=== PATIENT | male | born 1935 | race Caucasian/White ===

== ENCOUNTER 2017-05-10 19:12 | Emergency (ER) | payer MEDICARE, OTHER ==
[2017-05-10] MEDS ORDERED: methylPREDNISolone Sodium Succinate 125 MG/2 ML SDV IM ONE (19:43)
--- NOTE | 2017-05-10 19:53 | EDM.PDOC ---
ED HPI GENERAL MEDICAL PROBLEM - General Chief Complaint: Respiratory Problem Stated Complaint: ILL Time Seen by Provider: 05/10/17 19:25 Source of Information: Reports: Patient History Limitations: Reports: No Limitations - History of Present Illness INITIAL COMMENTS - FREE TEXT/NARRATIVE: PT STATES HE WAS USING [employer] IN BATHROOM AND BECAME SOB AND DIAPHORETIC. CONTACTED EMS AND WAS BROUGHT TO ER. FEELS BETTER UPON PRESENTATION. DENIES CP, N/V, MARQUEZ, OR VISION CHANGES. Onset: Today Duration: Hour(s): Quality: Reports: Burning Severity: Mild Improves with: Reports: None Worsens with: Reports: Breathing Associated Symptoms: Reports: No Other Symptoms - Related Data Allergies Allergy/AdvReac Type Severity Reaction Status Date / Time No Known Drug Allergies Allergy Unknown Cannot Verified 05/10/17 19:19 Remember Home Meds: Home Meds Aspirin [Adult Low Dose Aspirin EC] 81 mg PO DAILY 10/28/13 [History] Formoterol [Perforomist] 20 mcg INH BID 10/28/13 [History] InFLIXimab [Remicade] 500 mg IV ASDIRECTED 10/28/13 [History] Terazosin [Hytrin] 5 mg PO BEDTIME 10/28/13 [History] Tiotropium [Spiriva] 18 mcg INH DAILY 10/28/13 [History] Valsartan/Hydrochlorothiazide [Valsartan-Hctz 160-12.5 mg Tab] 0.5 tab PO DAILY 10/28/13 [History] azaTHIOprine [Azathioprine] 50 mg PO DAILY 09/01/14 [History] Psyllium [Metamucil] 1 cap PO BID 02/16/15 [History] Acetaminophen 500 mg PO Q4H PRN 08/24/15 [History] Folic Acid 1 mg PO DAILY 10/25/16 [History] hydrALAZINE [Apresoline] 25 mg PO BID 10/25/16 [History] Flecainide Acetate [Flecainide Acetate] 50 mg PO BID 05/10/17 [History] Past Medical History HEENT History: Reports: Cataract Cardiovascular History: Reports: CAD, High Cholesterol, Hypertension Respiratory History: Reports: COPD Genitourinary History: Reports: BPH, Renal Calculus Musculoskeletal History: Reports: RA, Other (See Below) Other Musculoskeletal History: pinched nerve in back - Past Surgical History HEENT Surgical History: Reports: Cataract Surgery Male Surgical History: Reports: Lithotripsy (ESWL) Musculoskeletal Surgical History: Reports: Hip Replacement, Knee Replacement Social & Family History - Tobacco Use Smoking Status *Q: Former Smoker Years of Tobacco use: 30 Used Tobacco, but Quit: Yes Month Tobacco Last Used: unknown Second Hand Smoke Exposure: No - Alcohol Use Days Per Week of Alcohol Use: 0 - Recreational Drug Use Recreational Drug Use: No ED ROS GENERAL - Review of Systems Review Of Systems: ROS reveals no pertinent complaints other than HPI. Constitutional: Reports: Diaphoresis HEENT: Reports: No Symptoms Respiratory: Reports: Shortness of Breath Cardiovascular: Reports: No Symptoms Endocrine: Reports: No Symptoms GI/Abdominal: Reports: No Symptoms : Reports: No Symptoms Musculoskeletal: Reports: No Symptoms Skin: Reports: No Symptoms Neurological: Reports: No Symptoms Psychiatric: Reports: No Symptoms Hematologic/Lymphatic: Reports: No Symptoms Immunologic: Reports: No Symptoms ED EXAM, GENERAL - Physical Exam Exam: See Below Exam Limited By: No Limitations General Appearance: Alert, WD/WN, No Apparent Distress Eye Exam: Bilateral Eye: Normal Inspection Ears: Normal External Exam, Normal Canal Nose: Normal Inspection, Normal Mucosa, No Blood Throat/Mouth: Normal Inspection, Normal Lips, Normal Oropharynx, Normal Voice, No Airway Compromise Head: Atraumatic, Normocephalic Neck: Normal Inspection, Supple Respiratory/Chest: No Respiratory Distress, Wheezing (FAINT EXP WHEEZE) Cardiovascular: Regular Rate, Rhythm GI/Abdominal: Normal Bowel Sounds, Soft, Non-Tender Extremities: Normal Inspection, No Pedal Edema Neurological: Alert, Oriented, Normal Cognition Psychiatric: Normal Affect, Normal Mood Skin Exam: Warm, Dry, Intact, Normal Color, No Rash Lymphatic: No Adenopathy EKG INTERPRETATION EKG Date: 05/10/17 Time: 19:45 Rate (Beats/Min): 82 Comparison: NA - No Prior EKG EKG Interpretation Comments: 1ST DEGREE AV BLOCK Course - Vital Signs Last Recorded V/S: Last Vital Signs Temp 98.3 F 05/10/17 19:20 Pulse 80 05/10/17 19:20 Resp 28 H 05/10/17 19:20 BP 192/82 H 05/10/17 19:20 Pulse Ox 93 L 05/10/17 19:20 - Orders/Labs/Meds Orders: Active Orders 24 hr Category Date Time Status EKG Documentation Completion [RC] ASDIRECTED Care 05/10/17 19:43 Ordered RT Aerosol Therapy [RC] ASDIRECTED Care 05/10/17 19:43 Ordered Chest 2V [CR] Stat Exams 05/10/17 19:43 Ordered EKG 12 Lead [EK] Routine Ther 05/10/17 19:43 Ordered Meds: Medications Discontinued Medications Generic Name Dose Route Start Last Admin Trade Name Lilian PRN Reason Stop Dose Admin Albuterol/Ipratropium 3 ml 05/10/17 19:43 Duoneb 3.0-0.5 Mg/3 Ml NEB 05/10/17 19:44 ONETIME ONE Methylprednisolone Sodium Succinate 125 mg 05/10/17 19:43 Solu-Medrol IM 05/10/17 19:44 ONETIME ONE - Radiology Interpretation Free Text/Narrative:: CXR NO ACUTE PROCESS - Re-Assessments/Exams Free Text/Narrative Re-Assessment/Exam: 05/10/17 20:16 PT AFEBRILE, NONTOXIC APPEARING, VSS, BBS CLEAR, DAUGHTERS AT BEDSIDE. Departure - Departure Time of Disposition: 20:16 Disposition: DC/Tfer to Psych Hosp/Unit 65 Condition: Good Clinical Impression: Chemical-induced asthma - Discharge Information Instructions: Chemical Inhalation Injury, Hypertension, [id number] Referrals: PCP,Not In Area [Primary Care Provider] - Additional Instructions: FOLLOW UP WITH YOUR PCP IN NEXT 1-2 DAYS. RETURN TO ER SOONER IF SYMPTOMS CONTINUE - My Orders Last 24 Hours: My Active Orders 05/10/17 19:43 EKG Documentation Completion [RC] ASDIRECTED RT Aerosol Therapy [RC] ASDIRECTED Chest 2V [CR] Stat EKG 12 Lead [EK] Routine - Assessment/Plan Last 24 Hours: My Active Orders 05/10/17 19:43 EKG Documentation Completion [RC] ASDIRECTED RT Aerosol Therapy [RC] ASDIRECTED Chest 2V [CR] Stat EKG 12 Lead [EK] Routine Assessment:: CHEMICAL INDUCED ASTHMA ATTACK Plan: F/U WITH PCP
[2017-05-10] MEDS: Albuterol/Ipratropium 3.0-0.5 MG/3 ML Neb Soln NEB ONE ×2 (19:55→19:57)
[2017-05-11 01:42] VITALS: BP 210/86
== END 2017-05-10 20:40 | disposition home or self-care (01) ==
LOC: KA.ED 19:12
DX: T65.891A Toxic effect of other specified substances, accidental (unintentional), initial encounter (principal); J68.3 Other acute and subacute respiratory conditions due to chemicals, gases, fumes and vapors; I25.10 Atherosclerotic heart disease of native coronary artery without angina pectoris; E78.00 Pure hypercholesterolemia, unspecified; I10 Essential (primary) hypertension; J44.9 Chronic obstructive pulmonary disease, unspecified; Z87.442 Personal history of urinary calculi; Z79.82 Long term (current) use of aspirin; Z79.899 Other long term (current) drug therapy; Z98.49 Cataract extraction status, unspecified eye; Z87.891 Personal history of nicotine dependence
CPT/HCPCS: 71020; 94640; 96372; 99285; J2930; 93005; 99284